=== PATIENT | female | born 1950 | race Hispanic/Latino ===

== ENCOUNTER 2017-06-21 09:06 | Outpatient (CLI) | payer BC | END 2017-06-21 09:07 | disposition home or self-care (01) | LOC: BICRAD 09:06 | PROVIDERS: ATTEND Family Medicine | DX: J40 Bronchitis, not specified as acute or chronic (principal) | CPT/HCPCS: 71046 ==

== ENCOUNTER 2021-07-22 13:59 | Outpatient (CLI) | payer MEDICARE ==
[2021-07-23 00:30] LABS: SARS-CoV-2 PCR by NAA Not Detected (NotDetected)
== END 2021-07-22 14:00 | disposition home or self-care (01) ==
LOC: LABBT 13:59
PROVIDERS: ATTEND Internal Medicine Critical Care Medicine
DX: Z20.822 Contact with and (suspected) exposure to COVID-19 (principal)
CPT/HCPCS: U0003; U0005

== ENCOUNTER 2021-07-24 09:50 | Day surgery (SDC) | payer MEDICARE ==
[2021-07-22 10:41] VITALS: BMI 20.1
[2021-07-24] MEDS ORDERED: fentaNYL Citrate/PF 100 MCG/2 ML SYRINGE ONE (12:22)
[2021-07-24] MEDS ORDERED: Lidocaine 2% Jelly 5 ML TUBE ONE (12:23)
[2021-07-24] MEDS ORDERED: SUGAMMADEX SODIUM 200 MG/2 ML VIAL ONE (13:22)
[2021-07-24] MEDS ORDERED: Ondansetron PF 4 MG/2 ML Vial ONE (13:27)
[2021-07-24] MEDS ORDERED: Lidocaine 1% PF 5 ML VIAL ONE (13:27)
[2021-07-24] MEDS ORDERED: Glycopyrrolate 0.2 MG/ML 5 ML SYRINGE ONE (13:27)
[2021-07-24] MEDS ORDERED: PROPOFOL 200 MG/20 ML VIAL ONE (13:27)
[2021-07-24] MEDS ORDERED: Rocuronium Bromide 10 MG/ML (10ML VIAL) ONE (13:27)
[2021-07-24] MEDS ORDERED: ePHEDrine 50 MG/ML VIAL ONE (13:27)
[2021-07-24] MEDS ORDERED: PHENYLEPHRINE-NS 100 MCG/ML 10 ML SYRINGE ONE (13:27)
[2021-07-30 12:38] LABS: Fungus Stain Final report (.)
== END 2021-07-24 15:36 | disposition home or self-care (01) ==
LOC: SDC 09:50
PROVIDERS: ATTEND Internal Medicine Critical Care Medicine
PROC: 0BDC8ZX Extraction of Right Upper Lung Lobe, Via Natural or Artificial Opening Endoscopic, Diagnostic (ICD-10-PCS; principal; 2021-07-24)
PROC: 0BDC8ZX Extraction of Right Upper Lung Lobe, Via Natural or Artificial Opening Endoscopic, Diagnostic (ICD-10-PCS; 2021-07-24)
DX: J84.10 Pulmonary fibrosis, unspecified (principal); J85.0 Gangrene and necrosis of lung; I10 Essential (primary) hypertension; E78.00 Pure hypercholesterolemia, unspecified; Z79.82 Long term (current) use of aspirin; Z79.899 Other long term (current) drug therapy
CPT/HCPCS: 71045; 87070; 87102; 87205; 87206; 88112; 88305; 88312; 93005; 93010; J2405; J2704; J3490

== ENCOUNTER 2022-12-22 14:18 | Outpatient (CLI) | payer MEDICARE | END 2022-12-22 14:19 | disposition home or self-care (01) | LOC: RAD 14:18 | PROVIDERS: ATTEND Internal Medicine Critical Care Medicine | DX: R06.00 Dyspnea, unspecified (principal); J92.9 Pleural plaque without asbestos; J90 Pleural effusion, not elsewhere classified; R91.8 Other nonspecific abnormal finding of lung field | CPT/HCPCS: 71046 ==